=== PATIENT | female | born 1995 | race Hispanic/Latino ===

== ENCOUNTER 2019-11-28 15:27 | Outpatient (CLI) | payer OTHER ==
--- NOTE | 2019-11-28 20:56 | ULT ---
LEFT BREAST ULTRASOUND: 11/28/19 INDICATIONS: Examination performed to assess palpable area of concern in the outer left breast. FINDINGS: the outer left breast was evaluated at 2 o'clock, 3 o'clock, and 4 o'clock positions. No sonographic abnormality identified. No mass, cyst, or sonographic distortion seen. IMPRESSION: Unremarkable directed ultrasound to outer left breast. Recommend clinical correlation regarding palpa ble concern. POS: [facility]
== END 2019-11-28 15:28 | disposition home or self-care (01) ==
LOC: BICULT 15:27
PROVIDERS: ATTEND Student in an Organized Health Care Education/Training Program
DX: N63.20 Unspecified lump in the left breast, unspecified quadrant (principal)